=== PATIENT | male | born 1985 | race Caucasian/White ===

== ENCOUNTER 2023-08-08 13:22 | Emergency (ER) | payer MEDICAID ==
[2023-08-08 13:30] VITALS: BP 171/95; O2SAT 97
[2023-08-08] MEDS ORDERED: HYDROmorphone 1 MG/ML CARPUJECT IM STA (13:59)
[2023-08-08] MEDS ORDERED: methocarbamoL 500 MG TABLET PO STA (14:02)
[2023-08-08] MEDS ORDERED: CHERRY SYRUP 10 ML UDC PO ONE (14:02)
[2023-08-08] MEDS ORDERED: DEXAMETHASONE 10 MG/ML VIAL PO STA (14:02)
--- NOTE | 2023-08-08 14:06 | ED Physician Documentation ---
History of Present Illness - Stated complaint Stated Complaint: RT SIDE NECK/ARM PX - Chief complaint Chief Complaint: Ext Problem - History obtained from History obtained from: Patient - History of Present Illness Timing: Today Pain level max: 8 Pain level now: 8 - Additonal information Additional information: Patient is a 38-year-old male with a longstanding history of neck issues and neck pain, states that today he woke up and has pain to the right side of the neck rating down the right shoulder. Worse with movement, better with rest. Took Motrin without relief. Has shooting pains down the right arm. Occasional tingling. No fevers. No chills. No IV drug use. Worse with movement, better with rest. Does not recall any specific injury. Patient states that he has had issues with his neck since a work accident many years ago. Review of Systems Constitutional: denies: Fever, Chills GI: denies: Vomiting, Diarrhea Skin: denies: Rash Musculoskeletal: denies: Back pain Neurologic: denies: Focal weakness, Headache, Head injury, LOC PD PAST MEDICAL HISTORY - Past Medical History Past Medical History: Yes Cardiovascular: Hypertension - Past Surgical History Past Surgical History: Yes Ortho: Spine surgery - Present Medications Home Medications: Ambulatory Orders Medication Instructions Recorded Confirmed Oxycodone HCl/Acetaminophen 1 - 2 each PO Q6H PRN #14 tablet 08/08/23 [Percocet 5-325 mg Tablet] MDD 6 tabs methocarbamoL [Robaxin] 500 mg PO Q6H PRN #20 tablet 08/08/23 methylPREDNISolone [Medrol] 4 mg PO DAILY #1 tab 08/08/23 - Allergies Allergies/Adverse Reactions: Allergies Allergy/AdvReac Type Severity Reaction Status Date / Time No Known Drug Allergies Allergy Verified 08/08/23 13:29 - Social History Does the pt smoke?: Yes Smoking Status: Current every day smoker PD ED PE NORMAL - Vitals Vital signs reviewed: Yes - General General: Alert and oriented X 3, No acute distress - HEENT HEENT: Moist mucous membranes - Neck Neck: Supple, no meningeal sign - Cardiac Cardiac: RRR, Strong equal pulses - Respiratory Respiratory: No respiratory distress, Clear bilaterally - Abdomen Abdomen: Soft, Non tender, Non distended - Back Back: No CVA TTP, No spinal TTP - Derm Derm: Warm and dry - Extremities Extremities: No deformity, No tenderness to palpate - Neuro Neuro: Alert and oriented X 3, occupational therapist's assistant 2-12 intact, No motor deficit, No sensory deficit, Normal speech Eye Opening: Spontaneous Motor: Obeys Commands Verbal: Oriented GCS Score: 15 - Psych Psych: Normal mood, Normal affect - Free text exam Free text exam: Tender to palpation on the right paracervical aspect of the neck. Tenderness goes down the right shoulder. Limited range of motion of the neck secondary to pain. Also limited range of motion of the right shoulder. Neurovascular intact. No swelling. No crepitus. No skin changes. Results - Vitals Vitals: Vital Signs - 24 hr 08/08/23 13:27 Temperature 36.5 C Heart Rate 81 Respiratory 20 Rate Blood Pressure 171/95 H O2 Saturation 97 Oxygen O2 Source Room air PD Medical Decision Making - ED course Complexity details: reviewed results, re-evaluated patient, considered differential, d/w patient ED course: 38-year-old male with chronic neck issues, appears to have a cervical radiculopathy. Will place on steroids, muscle relaxants and pain medication for home. No indication for emergent imaging. Given IM Dilaudid here. Also given Robaxin. Neurovascular intact. Given dexamethasone here as well. Patient will follow-up with his PCP for further care. No evidence of cauda equina, epidural abscess. No indication for emergent neuroimaging. No focal neurological deficits. Patient counseled regarding signs and symptoms for which I believe and urgent re-evaluation would be necessary. Patient with good understanding of and agreement to plan and is comfortable going home at this time This document was made in part using voice recognition software. While efforts are made to proofread this document, sound alike and grammatical errors may occur. Departure - Departure Disposition: 01 Home, Self Care Clinical Impression: Cervical radiculopathy Condition: Good Instructions: ED Cervical Radiculopathy Follow-Up: your,doctor in 1 week [Other] Prescriptions: methylPREDNISolone [Medrol] 4 mg PO DAILY #1 tab Oxycodone HCl/Acetaminophen [Percocet 5-325 mg Tablet] 1 - 2 each PO Q6H PRN #14 tablet MDD 6 tabs PRN Reason: pain methocarbamoL [Robaxin] 500 mg PO Q6H PRN #20 tablet PRN Reason: muscle spasm Comments: Please follow up with your doctor for further care. Return if you worsen. Your prescriptions were sent to [facility] in [place]. Please continue to gently stretch your neck at home. I am prescribing a short course of narcotic pain medication for you. These are potentially dangerous and addictive medications that should be used carefully. These medications may constipate you. Take an [id number] stool softener (docusate) twice daily with plenty of water while taking these medications. If you go 24 hours without a bowel movement, take [id number] miralax, per package instructions. Do not drink or drive while taking these medications. If you received narcotic or sedating medications while in the emergency department, do not drive for 24 hours. Store this medication in a safe, secure place and out of reach of children. It is a violation of federal law to give or sell this medication to another person or to use in a manner other than prescribed. The ED will not refill narcotic prescriptions, including prescriptions lost or stolen. To dispose of unwanted medications: 1. [facility] [address] in [place] has a medication drop box. They accept prescription medications (in pill form) Friday through Friday 9:00 a.m. to 5:00 p.m. 2. The [facility] [employer] accepts prescription medications (in pill form only) for disposal year round. Call for more information. 3. Contact the [facility] for the next [facility] sponsored prescription drug collection event. , [phone], or [phone]; Forms: PCP List
== END 2023-08-08 14:26 | disposition home or self-care (01) ==
LOC: ED 13:22
DX: M54.12 Radiculopathy, cervical region (principal); F17.200 Nicotine dependence, unspecified, uncomplicated
CPT/HCPCS: 99282; 99283; A9270; J1170

== ENCOUNTER 2023-08-26 08:00 | Outpatient (CLI) | payer MEDICAID ==
--- NOTE | 2023-08-26 19:51 | XRAY Report ---
PROCEDURE: Cervical Spine 2 View INDICATIONS: CERVICAL RADICULOPATHY TECHNIQUE: 3 view(s) of the cervical spine were acquired. COMPARISON: None. FINDINGS: Bones: No fractures or dislocations to the C7 level. The lateral masses of C1 appear intact on the odontoid view. No suspicious bony lesions. Mild bilateral facet joint arthritis at C3-C4, C4-C5, C5 -C6 and C6-C7. Soft tissues: No prevertebral soft tissue swelling. IMPRESSION: 1. Mild facet arthropathy in cervical spine bilaterally. 2. If clinical symptoms persist, consider MRI. Reviewed by: Didier Parks MD on 08/26/2023 7:50 PM PST Approved by: Didier Parks MD on 08/26/2023 7:50 PM PST Station ID: [id number]
== END 2023-08-26 23:59 | disposition home or self-care (01) ==
LOC: DI.S 08:00
PROVIDERS: ATTEND Registered Nurse
DX: M47.22 Other spondylosis with radiculopathy, cervical region (principal)